=== PATIENT | male | born 1975 | race Two or more races ===

== ENCOUNTER 2019-05-18 15:34 | Inpatient (IN) | payer SELFPAY ==
[~2019-05-18] VITALS: Ht 149.9 cm; Wt 71.4 kg
--- NOTE | 2019-05-18 15:50 | NUR ---
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 alert and oriented x4 breathing even and unlabored with no distress noted. skin intact. waiting to be seen by
[2019-05-18] MEDS ORDERED: ONDANSETRON HCL/PF 4 MG/2 ML VIAL ONE ×2 (15:56→19:47)
[2019-05-18] MEDS ORDERED: LORAZEPAM INJ 2 MG/ML VIAL ONE (15:57)
[2019-05-18] MEDS ORDERED: LORAZEPAM INJ 2 MG/ML VIAL IV ONE (16:00)
[2019-05-18] MEDS ORDERED: ONDANSETRON HCL/PF - ER 4 MG/2 ML VIAL IV ONE ×2 (16:00→20:00)
[2019-05-18 16:38] LABS: CALCIUM, SERUM 9.4 mg/dL (8.5-10.1); CARBON DIOXIDE 21 mmol/L (21-32); CHLORIDE 104 mmol/L (98-107); CREATININE 0.8 mg/dL (0.6-1.3); GLUCOSE 143 mg/dL (74-106); POTASSIUM 3.6 mmol/L (3.5-5.1); SODIUM SERUM 138 mmol/L (136-145); UREA NITROGEN, BLOOD 17 mg/dL (7-18)
[2019-05-18 16:41] LABS: BASOPHILS % (AUTO) 0.1 % (0.0-2.0); EOSINOPHILS % (AUTO) 0.1 % (0.0-6.0); HEMATOCRIT 53 % (39-51); HEMOGLOBIN 18.2 g/dL (13.5-17.5); LYMPHOCYTES # (AUTO) 1.8 /CMM (0.8-4.8); LYMPHOCYTES % (AUTO) 11.3 % (20.0-44.0); MEAN CORPUSCULAR HGB CONC 34 g/dl (31.0-36.0); MEAN CORPUSCULAR VOLUME 87 fL (80-96); MONOCYTES # (AUTO) 1.1 /CMM (0.1-1.30); MONOCYTES % (AUTO) 6.7 % (2.0-12.0); NEUTROPHILS # (AUTO) 13.3 /CMM (1.8-8.9); NEUTROPHILS % (AUTO) 81.8 % (43.0-81.0); PLATELET COUNT (AUTO) 393 /CMM (150-450); RED BLOOD CELL COUNT(AUTO) 6.09 MIL/uL (4.5-6.0); WHITE BLOOD COUNT (AUTO) 16.3 K/uL (4.3-11.0)
[2019-05-18 17:37] LABS: LYMPHOCYTES % (MANUAL) 13 % (16-48); MONOCYTES % (MANUAL) 7 % (0-11.0); NEUTROPHILS % (MANUAL) 80 (42-76)
--- NOTE | 2019-05-18 17:58 | NUR ---
heat treatment technician at bedside
--- NOTE | 2019-05-18 18:40 | NUR ---
URINE SENT TO LAB
[2019-05-18 18:50] LABS: APPEARANCE,URINE Clear (CLEAR); BILIRUBIN,URINE Negative (NEGATIVE); BLOOD, URINE Trace-intact Ery/uL (NEGATIVE); COLOR,URINE Yellow (YELLOW); KETONES,URINE Negative (NEGATIVE); LEUKOCYTE ESTERASE ,URINE Negative (NEGATIVE); NITRITE, URINE Negative (NEGATIVE); PROTEIN,URINE 100 mg/dl (NEGATIVE); UGLUCOSE Negative (NEGATIVE); UROBILINOGEN,URINE 0.2 EU/dL (0.2)
[2019-05-18 18:52] LABS: BACTERIA,URINE Rare /HPF (None Seen); SQUAMOUS EPITHELIAL CELL,UR Few /HPF (None Seen); WBC,URINE NONE SEEN /HPF (0-3)
[2019-05-18] MEDS ORDERED: MORPHINE SULFATE INJ 2 MG/ML DISP.SYRIN ONE (19:47)
--- NOTE | 2019-05-18 19:51 | NUR ---
consent signed for lumbar puncture
[2019-05-18] MEDS ORDERED: MORPHINE SULFATE INJ 2 MG/ML DISP.SYRIN IV ONE (20:00)
[2019-05-18] MEDS ORDERED: AZITHROMYCIN 500 MG in IV D5W 250 ML IV ONE (20:00)
--- NOTE | 2019-05-18 20:26 | NUR ---
CALLED [employer]ail JUNIOR LINUX ADMINISTRATOR WAS PAGED.
--- NOTE | 2019-05-18 20:53 | NUR ---
CALLED HOUSE SUP FOR TELE BED
[2019-05-18] MEDS: CEFTRIAXONE 2 G in IV D5W 100 ML IV SCH ×2 (21:00→21:01)
[2019-05-18] MEDS ORDERED: VANCOMYCIN 1 GM in IV D5W 250 ML IV ONE (21:00)
[2019-05-18] MEDS ORDERED: VANCOMYCIN 1 GM VIAL ONE (21:30)
[2019-05-18 21:47] LABS: CSF GLUCOSE 87 mg/dL (40-70); CSF PROTEIN 38.3 mg/dL (15-45)
--- NOTE | 2019-05-18 22:03 | NUR ---
REPORT TO [place]
--- NOTE | 2019-05-18 22:25 | NUR ---
RECEIVED PATIENT FROM ED VIA GURNEY IN STABLE CONDITION. PATIENT AWAKE, A/O X4, DUTCH SPEAKING AND ABLE TO VERBALIZE NEEDS. NO C/O PAIN, DISCOMFORT, OR NAUSEA. PATIENT WEAK WITH UNSTEADY GAIT, UNABLE TO AMBULATE AT THIS TIME. PERIPHERAL LINE INTACT AND PATENT. PATIENT CONSENTED TO UPPER BODY/EXTREMITY SKIN ASSESSMENT BUT REFUSED TO ALLOW NURSING STAFF FOR REMOVE BILATERAL SOCKS TO ASSESS FEET DESPITE CONTINUED ENCOURAGEMENT. WILL ATTEMPT TO ASSESS FEET LATER IN SHIFT. ENCOURAGED USE OF CALL LIGHT FOR ASSISTANCE AND VERBALIZED GOOD UNDERSTANDING. BED IN LOW LOCK SETTING WITH BED ALARM ON AND FUNCTIONING PROPERLY. ROOM FREE OF CLUTTER AND BELONGINGS KEPT NEAR BEDSIDE. WILL CONTINUE TO MONITOR
[2019-05-18] MEDS ORDERED: Z GUARD REMEDY 2 OZ OINT TP PRN (22:30)
[2019-05-18] MEDS ORDERED: ENOXAPARIN SODIUM 40 MG/0.4 ML DISP.SYRIN SQ SCH (22:30)
[2019-05-18] MEDS ORDERED: ONDANSETRON HCL/PF 4 MG/2 ML VIAL IVP PRN (22:30)
[2019-05-18] MEDS ORDERED: ACETAMINOPHEN 325 MG TABLET PO PRN (22:30)
--- NOTE | 2019-05-18 22:33 | NUR ---
PT TRANSFERED PER [employer]S [employer]
[2019-05-18] MEDS: IV NS 0.9% 1,000 ML IV PRN (23:13)
[2019-05-19] MEDS: MORPHINE SULFATE INJ 2 MG/ML DISP.SYRIN IV PRN ×3 (03:51→19:41)
[2019-05-19 05:03] LABS: BASOPHILS % (AUTO) 0.1 % (0.0-2.0); HEMATOCRIT 51 % (39-51); HEMOGLOBIN 17.6 g/dL (13.5-17.5); LYMPHOCYTES # (AUTO) 0.6 /CMM (0.8-4.8); LYMPHOCYTES % (AUTO) 3.1 % (20.0-44.0); MEAN CORPUSCULAR HGB CONC 34 g/dl (31.0-36.0); MEAN CORPUSCULAR VOLUME 87 fL (80-96); MONOCYTES # (AUTO) 1.5 /CMM (0.1-1.30); MONOCYTES % (AUTO) 7.3 % (2.0-12.0); NEUTROPHILS % (AUTO) 89.5 % (43.0-81.0); PLATELET COUNT (AUTO) 321 /CMM (150-450); RED BLOOD CELL COUNT(AUTO) 5.91 MIL/uL (4.5-6.0); WHITE BLOOD COUNT (AUTO) 20.1 K/uL (4.3-11.0)
[2019-05-19 05:30] LABS: ALBUMIN 3.3 g/dL (3.4-5.0); BILIRUBIN,TOTAL 0.4 mg/dL (0.2-1.0); CALCIUM, SERUM 9.1 mg/dL (8.5-10.1); CREATININE 0.9 mg/dL (0.6-1.3); MAGNESIUM 1.8 mg/dL (1.8-2.4); PHOSPHORUS 3.5 mg/dL (2.5-4.9); POTASSIUM 3.4 mmol/L (3.5-5.1); TOTAL PROTEIN, SERUM 7.2 g/dL (6.4-8.2)
[2019-05-19 05:32] LABS: THYROID STIMULATING HORMONE 0.883 uIU/mL (0.358-3.74)
--- NOTE | 2019-05-19 06:35 | NUR ---
MS RN NOTES PATIENT ASLEEP IN BED WITH NO DISTRESS NOTED. CALL LIGHT WITHIN REACH. ALL DUE MEDS GIVEN ORDERED WITH NO ASE. NO FURTHER C/O PAIN OR DISCOMFORT. PERIPHERAL LINE INTACT AND PATENT. BED IN LOW LOCK SETTING WITH BED ALARM ON AND FUNCTIONING PROPERLY. WILL ENDORSE TO ONCOMING SHIFT.
[2019-05-19 08:25] VITALS: BP 138/96
--- NOTE | 2019-05-19 08:25 | NUR ---
ms rn received on bed, awake,alert,oriented x4,not in any form of distress, respirations even and unlabored,no sob noted, lungs are clear,abdomen soft,positive bowel sounds,denies pain at this time,all needs attended.
--- NOTE | 2019-05-19 08:50 | NUR ---
MS/RN NOTES: DR KAUFFMAN CALLED REGARDING EMERGENT RESULT OF THE CT ANGIO OF THE BRAIN AND CAROTID. PAGED AND CALLED DR. DERICK AREVALO, STILL AWAITING FOR TO CALL BACK. PATIENT IS STABLE AT THIS TIME. NO COMPLAINS OF PAIN OR DISCOMFORT. WILL CONTINUE MONITORING. Addendum: 05/19/19 at 2111 by SADI LOZOYA RN INCORRECT TIME
--- NOTE | 2019-05-19 09:00 | NUR ---
ms zambrano breakfast served,due meds given,tolerated well.
[2019-05-19] MEDS ORDERED: POTASSIUM CHLORIDE 20 MEQ TAB.PRT.SR PO SCH (11:00)
[2019-05-19] MEDS ORDERED: ASPIRIN 325 MG TABLET PO ONE ×2 (13:30→16:00)
[2019-05-19 16:06] VITALS: BP 119/51
[2019-05-19] MEDS ORDERED: IOHEXOL-350 100 ML VIAL IV ONE (18:37)
[2019-05-19] MEDS ORDERED: IV NS 0.9% 250 ML IV ONE (18:44)
--- NOTE | 2019-05-19 19:20 | NUR ---
MS/RN OPENING NOTES: RECEIVED PT. IN BED AWAKE AND ALERT X4. SAO TOMEAN SPEAKING ONLY. FAMILY MEMBERS PRESENT AT BED SIDE. ON BED REST. ON ROOM AIR, SATURATING WELL. NO SOB NOTED. NO S/S OF DISTRESS. IV SITE ON THE LEFT AC #20G PRESENT, INTACT AND PATENT. SAFETY MEASURES ARE IN PLACE. BED IS IN LOW, LOCKED POSITION, SR UP X2. WILL CONTINUE MONITORING PT. ACCORDINGLY.
--- NOTE | 2019-05-19 19:50 | NUR ---
MS/RN NOTES: CALLED PHARMACY REGARDING ROCEPHIN 2G THAT IS SUPPOSEDLY GIVEN EVERY 24HOURS. SPOKE TO MODESTA TO CONFIRM THAT ITS OKAY TO BE GIVEN AND TO NOT SCAN BECAUSE ER NURSE MISTAKENLY SCANNED TWICE YESTERDAY.
[2019-05-19 20:00] VITALS: BP 129/94
--- NOTE | 2019-05-19 20:40 | NUR ---
MS/RN NOTES: PATIENT CAME BACK FROM CT ANGIO OF THE BRAIN AND ARTERY. PATIENT IN STABLE CONDITION. REMAINS A/OX4, RESPONSIVE.
--- NOTE | 2019-05-19 20:50 | NUR ---
MS/RN NOTES: DR KAUFFMAN CALLED REGARDING EMERGENT RESULT OF THE CT ANGIO OF THE BRAIN AND CAROTID. PAGED AND CALLED DR. DERICK AREVALO, STILL AWAITING FOR TO CALL BACK. PATIENT IS STABLE AT THIS TIME. NO COMPLAINS OF PAIN OR DISCOMFORT. WILL CONTINUE MONITORING.
--- NOTE | 2019-05-19 21:31 | NUR ---
MS/RN NOTES: CALLED DR. SEPULVEDA AGAIN. STILL NO RESPONSE. PATIENT IS STABLE AT THIS TIME. RESPONSIVE AND ABLE TO FOLLOW COMMANDS.
--- NOTE | 2019-05-19 21:50 | NUR ---
MS/RN NOTES: DR SEPULVEDA CALLED AND MADE AWARE OF PATIENT CONDITION AND CURRENT SITUATION. STATED HE WILL VIEW PATIENT'S CHARTS FIRST AND WILL NOTIFY ME FOR FURTHER INFO. WILL CONITNUE MONITORING PATIENT.
--- NOTE | 2019-05-19 23:30 | NUR ---
MS/RN NOTES: CALLED DR. CASPER, WENT TO [employer]. LEFT MESSAGE REGARDING PT'S. CONDITION. WILL CONTINUE TO MONITOR.
[2019-05-20] VITALS (25 sets, daily range): BP systolic 107–148; BP diastolic 62–100
--- NOTE | 2019-05-20 01:30 | NUR ---
MS/RN NOTES: CALLED DR. SEPULVEDA REGARDING F/U FOR PATIENT'S CONDITION. PER MD, "CONTINUE MONITORING FOR NOW, I INFORMED THE NEURO DR WELL, LET'S WAIT FOR MORNING". WILL CONTINUE TO MONITOR.
--- NOTE | 2019-05-20 01:32 | NUR ---
MS/RN NOTES: NO NEW ORDERS FOR NOW. MD AWARE. WILL CONITNUE MONITORING PT AND DO NUERO CHECKS.
[2019-05-20] MEDS: IV NS 0.9% 1,000 ML IV PRN ×2 (01:34→14:11)
[2019-05-20] MEDS: MORPHINE SULFATE INJ 2 MG/ML DISP.SYRIN IV PRN ×3 (01:54→16:09)
--- NOTE | 2019-05-20 01:57 | NUR ---
MS/RN NOTES: PATIENT COMPLAINED OF PAIN LEVEL OF 10 ON THE NECK. QUALITY IS THROBBING AND ACHING. VITAL SIGNS WNL. BP: 11/70. HR: 82. O2 SAT :94% PATIENT IS A/OX4 AT THIS TIME. IN STABLE CONDITION. ADMINISTERED 4MGG OF MORPHINE IV. WILL REASSESS AND CONTINUE MONITORING ACCORDINGLY.
--- NOTE | 2019-05-20 02:57 | NUR ---
MS/RN NOTES: PATIENT STABLE. PAIN LEVEL IMPROVED AND NOW MORE TOLERABLE. NEURO CHECK ASSESSMENT DONE. PT. ABLE TO FOLLOW COMMANDS AND REMAINS A/OX4. WILL CONTINUE MONITORING PT. ACCORDINGLY.
--- NOTE | 2019-05-20 04:00 | NUR ---
MS/RN NOTES: PATIENT STABLE. NEURO CHECK ASSESSMENT DONE. PT. ABLE TO FOLLOW COMMANDS AND REMAINS A/OX4. WILL CONTINUE MONITORING PT. ACCORDINGLY.
--- NOTE | 2019-05-20 05:00 | NUR ---
MS/RN NOTES: PATIENT IS STABLE. NO COMPLAINS OF PAIN AT THIS TIME. NEURO CHECK ASSESSMENT DONE. PT. ABLE TO FOLLOW COMMANDS AND REMAINS A/OX4. WILL CONTINUE MONITORING PT. ACCORDINGLY.
--- NOTE | 2019-05-20 06:38 | NUR ---
MS/RN CLOSING NOTES: PATIENT IS IN A STABLE CONDITION. SLEEPING IN BED COMFORTABLY. EASILY AROUSED WITH VERBAL STIMULI. REMAINS A/OX4. ICELANDIC SPEAKING, VERBALLY RESPONSIVE AND ABLE TO MAKE NEEDS KNOWN. ONROOM AIR. NO SOB NOTED, NO S/S OF ACUTE DISTRESS. NO COMPLAINS OF PAIN AT THIS TIME. ALL DUE MEDS GIVEN ORDERED. ALL NEEDS ATTENDED AND MET. IV ACCESS ON THE LEFT AC #20G INTACT AND PATENT WITH NS RUNNING AT 75MLS/HR. MD AWARE OF PT'S CONDITION AND PT'S CT ANGIO OF THE BRAIN AND ARTERY FINDINGS. STILL NO ORDERS. FREQUENT NEURO CHECK DONE Q1HOUR. PATIENT ABLE TO FOLLOW COMMANDS. SAFETY MEASURES KEPT IN PLACE. BED IN LOW, LOCKED POSITION WITH SR UP X2. KEPT PT CLEAN AND DRY AT ALL TIMES. KEPT PT WARM AND COMFORTABLE THROUGHOUT THE SHIFT. WILL ENDORSE TO DAY SHIFT NURSE FOR [place].
[2019-05-20 08:08] LABS: BASOPHILS % (AUTO) 0.1 % (0.0-2.0); EOSINOPHILS % (AUTO) 0.1 % (0.0-6.0); HEMATOCRIT 49 % (39-51); HEMOGLOBIN 16.4 g/dL (13.5-17.5); LYMPHOCYTES # (AUTO) 0.9 /CMM (0.8-4.8); LYMPHOCYTES % (AUTO) 5.7 % (20.0-44.0); MEAN CORPUSCULAR HGB CONC 34 g/dl (31.0-36.0); MEAN CORPUSCULAR VOLUME 87 fL (80-96); MONOCYTES # (AUTO) 1.3 /CMM (0.1-1.30); MONOCYTES % (AUTO) 8.5 % (2.0-12.0); NEUTROPHILS % (AUTO) 85.6 % (43.0-81.0); PLATELET COUNT (AUTO) 265 /CMM (150-450); WHITE BLOOD COUNT (AUTO) 15.2 K/uL (4.3-11.0)
--- NOTE | 2019-05-20 08:16 | NUR ---
MS/RN OPENING NOTE Patient received resting in bed, A/O x4, showing no signs of respiratory distress, saturating 95% on RA. Patient is complaining of pain in the back of the neck. Dr. Almonte is at the bedside and assessed the patient. Patient has slight left sided weakness on the left side of his face, left hand weakness when squeezing left hand, and wide stance when ambulating. Dr. Almonte ordered STAT MRI of the brain, head and neck without contrast, MRI consent is signed and placed in chart. And Neuro checks q 2 hours. MD also ordered aspirin and lovenox scheduled for [address] Almonte, patient doesn't need to be on isolation precautions since meningitis has been ruled out. IV line is clean and intact s/l. Bed is in lowest position, side rails x3 in upright position, call light is within reach and patient is aware of hoe to call for assistance when needed. Will continue with plan of care.
[2019-05-20 08:26] LABS: ALANINE AMINOTRANSFERASE 70 U/L (12-78); ALBUMIN 2.8 g/dL (3.4-5.0); ALKALINE PHOSPHATASE 72 U/L (46-116); ASPARTATE AMINOTRANSFERASE 43 U/L (15-37); BILIRUBIN,TOTAL 0.6 mg/dL (0.2-1.0); CALCIUM, SERUM 8.8 mg/dL (8.5-10.1); CARBON DIOXIDE 28 mmol/L (21-32); CHLORIDE 101 mmol/L (98-107); CREATININE 0.9 mg/dL (0.6-1.3); GLUCOSE 113 mg/dL (74-106); PHOSPHORUS 3.9 mg/dL (2.5-4.9); POTASSIUM 3.9 mmol/L (3.5-5.1); SODIUM SERUM 137 mmol/L (136-145); TOTAL PROTEIN, SERUM 6.8 g/dL (6.4-8.2); UREA NITROGEN, BLOOD 16 mg/dL (7-18)
[2019-05-20] MEDS ORDERED: ASPIRIN 81 MG TAB.CHEW PO SCH (09:00)
[2019-05-20] MEDS: ASPIRIN EC 325 MG TABLET.DR PO SCH ×2 (09:00→10:29)
[2019-05-20] MEDS: ENOXAPARIN SODIUM 40 MG/0.4 ML DISP.SYRIN SQ SCH ×2 (09:00→10:28)
--- NOTE | 2019-05-20 09:15 | NUR ---
MS/RN MRI Patient has gone down to MRI
[2019-05-20] MEDS: FAMOTIDINE/PF INJ 20 MG/2 ML VIAL IV SCH ×2 (10:29→10:30)
--- NOTE | 2019-05-20 10:30 | NUR ---
MS/RN NOTE Patient is back from MRI, patient still presents with left side facial weakness only. So changes in LOC, or BUE and BLE strength. Will continue to monitor.
--- NOTE | 2019-05-20 10:35 | NUR ---
MS/RN NOTE Spoke with MD Lalo Leblanc, he is aware of patient's CTA results and patient's left sided facial weakness. Per MD, he is waiting for MRI results and to notify him when the results are ready.
--- NOTE | 2019-05-20 10:40 | NUR ---
MS/RN note Spoke with radiology if the MRI results can be interpreted JENNIFER, theygave me phone number for [employer] which is the company that interprets the MRI results. Called [facility], and asked them to interpret MRI results stat per MD.
--- NOTE | 2019-05-20 10:57 | NUR ---
held lovenox and aspirin per MD Lalo Leblanc
--- NOTE | 2019-05-20 11:00 | NUR ---
MS/RN NOTE MD notified of MRI brain w/o contrast results.
--- NOTE | 2019-05-20 11:41 | NUR ---
Social service consult requested by Dr. Barker for stroke protocol. Per chart review and MD notes, pt is a 43-year-old gentleman who presented to the emergency department via ambulance for acute onset of a headache that was moderate to severe in nature described as severe constant and throbbing radiating down to his neck with tingling sensation to his face and bilateral hands. POLITICAL GEOGRAPHER met with pt and his family and friends bedside. Pt is Luxembourger Speaking. HOWARD Garber assisted in translation. POLITICAL GEOGRAPHER introduced self and explained her role. Pt. is alert and oriented x 4. Pt. resides alone in a one story house. Pt.is unemployed at this time. Pt. reports to be independent with his ADLS prior to hospitalization. Pt's main complaint is being in pain and not having much of an appetite. Pt.denies any suicidal and homicidal ideations and visual/auditory hallucinations at this time. Pt reports to have good family support. Pt's brother Ab is bedside. Pt provided active listening and supportive counseling. POLITICAL GEOGRAPHER completed PHQ-9 assessment. No other social service needs are requested at this time. POLITICAL GEOGRAPHER is available, if needed.
--- NOTE | 2019-05-20 12:45 | NUR ---
MS/RN transferred to ICU Per MD, patient is to be transferred to ICU. Transferred patient with Steffen RN and gave bedside report to Felicity LANDRY in the ICU. Tele monitor Sinus Tachycardia. Vital signs 130/91, HR 94, RR 20, o2 94% RA, T 98.1. Family is in ICU waiting room.
--- NOTE | 2019-05-20 12:50 | NUR ---
ICU ADMITTING NOTES Pt transferred to ICU for close monitoring neuro root. Pt transferred via bed accompanied by 3W RN. Pt is A/O x 3, c/o severe pain on occipital area, R side, throbbing, 10/10 - was given Morphine IVP prior to transfer. Pt noted L facial drooping, denies & no weakness noted on all extremities, able to follow commands. No SOB while on R/A. ST/SR on telemonitor. IV line access on L AC G20 SL, flushing well w/ no s/sx of infection/infiltration noted. Skin is intact - abdominal hernia noted. Continent w/ both bowel & bladder, utilizes the urinal. Safety precaution in place w/ bed in lowest & locked pos. Call light placed w/in reach. Will cont to monitor & attend pt needs. Per Lalo ALANIZ, CHUCK Lovenox & start pt on ASA 325mg PO daily - give one dose today. 1841 No neurological deterioration noted w/in shift. Pt still c/o headache, same area. Will endorse to PM RN for [place].
[2019-05-20] MEDS ORDERED: ASPIRIN EC 325 MG TABLET.DR PO ONE (19:00)
[2019-05-20] MEDS ORDERED: KETOROLAC TROMETHAMINE INJ 30 MG/ML VIAL IV STA (19:11)
[2019-05-20] MEDS ORDERED: CEFTRIAXONE 2 G in IV D5W 100 ML IV SCH (21:00)
[2019-05-21] VITALS (16 sets, daily range): BP systolic 107–141; BP diastolic 67–95
[2019-05-21] MEDS: IV NS 0.9% 1,000 ML IV PRN ×2 (01:00→18:21)
[2019-05-21] MEDS: MORPHINE SULFATE INJ 2 MG/ML DISP.SYRIN IV PRN ×5 (02:11→20:43)
[2019-05-21 04:44] LABS: BASOPHILS % (AUTO) 0.1 % (0.0-2.0); EOSINOPHILS % (AUTO) 0.5 % (0.0-6.0); HEMATOCRIT 46 % (39-51); HEMOGLOBIN 15.5 g/dL (13.5-17.5); LYMPHOCYTES # (AUTO) 1.1 /CMM (0.8-4.8); LYMPHOCYTES % (AUTO) 8.9 % (20.0-44.0); MEAN CORPUSCULAR HGB CONC 34 g/dl (31.0-36.0); MEAN CORPUSCULAR VOLUME 88 fL (80-96); MONOCYTES # (AUTO) 0.9 /CMM (0.1-1.30); MONOCYTES % (AUTO) 7.9 % (2.0-12.0); NEUTROPHILS % (AUTO) 82.6 % (43.0-81.0); PLATELET COUNT (AUTO) 244 /CMM (150-450); RED BLOOD CELL COUNT(AUTO) 5.21 MIL/uL (4.5-6.0); WHITE BLOOD COUNT (AUTO) 12.1 K/uL (4.3-11.0)
[2019-05-21 04:56] LABS: CALCIUM, SERUM 8.6 mg/dL (8.5-10.1); CREATININE 0.8 mg/dL (0.6-1.3); POTASSIUM 4.1 mmol/L (3.5-5.1)
--- NOTE | 2019-05-21 07:12 | NUR ---
CORRECTIONS SERGEANT INITIAL NOTES Rec'd pt on bed, A/O x 3, not in any distress, c/o pain on occipital area 01/29. On R/A, denies SOB. SR/SB on telemonitor. NS x 75 cc/hr running at L AC G20. Safety precaution in place w/ bed in lowest & locked pos. Call light placed w/in reach. Will cont to monitor & attend pt needs.
--- NOTE | 2019-05-21 07:27 | NUR ---
PATIENT REMAINS IN NO ACUTE DISTRESS IN BED. ALL NEEDS MET, ALL ORDERS CARRIED OUT. PATIENT IS ON Q1H NEURO CHECK WITH NO CHANGES FROM BEGINNING OF SHIFT. PATIENT HAS NO DEFICITS NOTED EXCEPT SLIGHT WEAKNESS ON RIGHT SIDE OF CHEEK. ENDORSED CARE TO AM RN FOR CONTINUITY OF CARE.
[2019-05-21] MEDS: FAMOTIDINE/PF INJ 20 MG/2 ML VIAL IV SCH ×2 (08:35→20:42)
[2019-05-21] MEDS: ASPIRIN EC 325 MG TABLET.DR PO SCH (08:35)
--- NOTE | 2019-05-21 11:00 | NUR ---
ICU TRANSFER NOTES Pt transferred to MS 111/2 as ordered via bed. Pt remains A/O x 3, not in any distress. SR on telemonitor. RFA G20 kept patent & intact w/ no s/sx of infection/infiltration noted w/ NS x 75 cc/hr infusing well. Pt able to walk w/ physical therapist this AM using walker. Skin remains intact. All belongings w/ pt, per pt nothing is missing. No concern/issues identified during transfer. Report given to aPtito LANDRY for [place].
--- NOTE | 2019-05-21 20:50 | NUR ---
MINOO/RN PATIENT C/O NECK PAIN, MEDICATED WITH MORPHINE 4 MG ORDERED. PATIENT IS AWAKE, ALERT, ORIENTED, NO DISTRESS NOTED, CALL LIGHT IN REACH. FALL PRECAUTIONS. WILL MONITOR.
[2019-05-22] VITALS: BP 141/95
[2019-05-22 00:18] VITALS: BP 158/78
--- NOTE | 2019-05-22 00:26 | NUR ---
MINOO/RN PLS. DISREGARD VITAL SIGNS DOCUMENTATION AT 0018, THOSE ARE VITAL SIGNS OF OTHER PATIENT.
--- NOTE | 2019-05-22 02:17 | NUR ---
MINOO/RN PATIENT IS SLEEPING AT THIS TIME, APPEAR COMFORTABLE, NO SIGNS OF DISTRESS NOTED, CALL LIGHT IN REACH, WILL CONTINUE TO MONITOR.
--- NOTE | 2019-05-22 03:15 | NUR ---
MINOO/RN C/O HEAD ACHE, TYLENOL 650 MG PO WAS GIVEN ORDERED. WILL CONTINUE TO MONITOR.
[2019-05-22 04:36] VITALS: BP 132/86
--- NOTE | 2019-05-22 06:04 | NUR ---
MINOO/RN PATIENT IS STILL SLEEPING AT THIS TIME, APPEAR COMFORTABLE, NO SIGNS OF DISTRESS NOTED, ALL NEEDS ATTENDED AT THIS TIME, CALL LIGHT IN REACH. WILL CONTINUE TO MONITOR.
--- NOTE | 2019-05-22 07:10 | NUR ---
MS RN NOTES PATIENT A/OX4 AZERI SPEAKER. NO SOB OR DISCOMFORT NOTED AT THIS TIME. RIGHT FOREARM NS RUNNING AT 75 ML /HR. CALL LIGHT WITHIN REACH BED AT THE LOWEST POSITION LOCKED.
[2019-05-22 08:00] VITALS: BP 132/87
[2019-05-22] MEDS: CYANOCOBALAMIN 500 MCG TABLET PO SCH (08:18)
[2019-05-22] MEDS: FERROUS SULFATE (325 MG) 325 MG/TAB TABLET PO SCH ×2 (08:18→18:11)
[2019-05-22] MEDS: ASPIRIN EC 325 MG TABLET.DR PO SCH (08:18)
[2019-05-22] MEDS: FAMOTIDINE/PF INJ 20 MG/2 ML VIAL IV SCH ×2 (08:19→20:31)
[2019-05-22] MEDS: MORPHINE SULFATE INJ 2 MG/ML DISP.SYRIN IV PRN ×3 (08:19→20:33)
[2019-05-22] MEDS: IV NS 0.9% 1,000 ML IV PRN ×2 (08:30→23:33)
[2019-05-22 13:13] LABS: *ANTITHROMBIN III AG 113 % (72-124); *DILUTE PROTHROMBIN TIME (dPT) 45.7 sec (0.0-55.0); *THROMBIN TIME 14.5 sec (0.0-23.0); *dPT CONFIRM RATIO 1.13 Ratio (0.00-1.40); *dRVVT 55.8 sec (0.0-47.0); PROTEIN C ACTIVITY 161 % (73-180)
--- NOTE | 2019-05-22 14:37 | NUR ---
MS RN NOTES CONTACTED DR ZAVALETA REGARDING PATIENT`S HEADACHE AND CONSTIPATION. ORDER RECEIVED: NORCO 10/325 Q4HR PRN, MIRALAX 17 G PO DAILY PRN, TELEPHONE ORDER READ BACK.
[2019-05-22] MEDS ORDERED: POLYETHYLENE GLYCOL 3350 17 GM POWD.PACK PO PRN (15:00)
[2019-05-22] MEDS: HYDROCODONE/APAP 10/325MG 1 EA TABLET PO PRN (15:46)
[2019-05-22 16:00] VITALS: BP 132/85
--- NOTE | 2019-05-22 19:20 | NUR ---
MS RN NOTES PATIENT IN BED A/OX 4 , COMPLAINING OF HEADACHE 12/30. PAIN MANAGEMENT DONE, ENDORSED TO SENIOR BUSINESS PROCESS ANALYST NURSE TO CONTINUE PAIN MANAGEMENT. PATIENT DID NOT HAVE BOWEL MOVEMENT , OBTAINED MEDICATION ORDER BUT PATIENT REFUSED THE MED. CALL LIGHT WITHIN REACH, BED AT THE LOWEST POSITION LOCKED,, ENDORSED TO SENIOR BUSINESS PROCESS ANALYST NURSE FOR [place].
[2019-05-22 19:57] VITALS: BP 132/85
[2019-05-23] MEDS: MORPHINE SULFATE INJ 2 MG/ML DISP.SYRIN IV PRN (00:48)
[2019-05-23 00:53] VITALS: BP 124/76
[2019-05-23 01:12] LABS: *CARD ANTI-CARDIOLIPIN AB IgA <9 APL U/mL (0-11); *CARD ANTI-CARDIOLIPIN AB IgG <9 GPL U/mL (0-14); *CARD ANTI-CARDIOLIPIN AB IgM <9 MPL U/mL (0-12)
[2019-05-23] MEDS: HYDROCODONE/APAP 10/325MG 1 EA TABLET PO PRN (04:02)
[2019-05-23 05:30] VITALS: BP_SYST 138; BP_SYST 155; BP_DIAS 78; BP_DIAS 95
--- NOTE | 2019-05-23 07:16 | NUR ---
MS RN OPENING NOTE RECEIVED PATIENT IN BED SLEEPING COMFORTABLY. PATIENT IN NO ACUTE DISTRESS. NO SOB NOTED. PATIENT BREATHING IS EVEN AND UNLABORED. IV PATENT AND INTACT. SAFETY PRECAUTIONS IN PLACE. PATIENT BED IS LOCKED AND IN LOWEST POSITION. CALL LIGHT WITHIN REACH. WILL CONTINUE TO MONITOR.
[2019-05-23 08:00] VITALS: BP 145/97
[2019-05-23] MEDS: FERROUS SULFATE (325 MG) 325 MG/TAB TABLET PO SCH (08:39)
[2019-05-23] MEDS: FAMOTIDINE/PF INJ 20 MG/2 ML VIAL IV SCH (08:39)
[2019-05-23] MEDS: ASPIRIN EC 325 MG TABLET.DR PO SCH (08:39)
[2019-05-23] MEDS: CYANOCOBALAMIN 500 MCG TABLET PO SCH (08:39)
--- NOTE | 2019-05-23 10:56 | NUR ---
Visited pt today. Pt confirmed height 4'11" (59 inches) and denies recent weight changes. Pt states appetite is so so. Per nursing, 0-100% po intake but appears improving. Noted LDL 217H. Provided diet education to pt with handouts. Pt verbalized understanding. Noted MD order to discharge pt today.
--- NOTE | 2019-05-23 11:34 | NUR ---
MS RN NOTE PATIENT REFUSED SKIN ASSESSMENT AND PICTURES. PATIENT STATES " I DONT FEEL COMFORTABLE, YOU GUYS HAVE A PICTURE ALREADY. I REFUSE." EDUCATED RISKS VS BENEFITS. PATIENT CONTINUED TO REFUSE.
[2019-05-23] MEDS ORDERED: ATOR80TA PO (12:33)
[2019-05-23] MEDS ORDERED: FERR325T28 PO (12:33)
[2019-05-23] MEDS ORDERED: ASPI-869 PO (12:33)
[2019-05-23] MEDS ORDERED: IBUP-1953 PO (12:33)
--- NOTE | 2019-05-23 13:45 | NUR ---
MS HUMAN RESOURCE INTERNSHIP NOTE PATIENT MEDICALLY CLEARED FOR DISCHARGE. PATIENT IN NO ACUTE DISTRESS. NO SOB NOTED. PATIENT BREATHING IS EVEN AND UNLABORED. PATIENT VITAL SIGNS WNL. PATIENT REFUSED SKIN ASSESSMENT. EDUCATED RISKS VS BENEFITS. PATIENT CONTINUED TO REFUSE. PATIENT PROVIDED DC INSTRUCTIONS WITH RESEARCH AND EVALUATION ANALYST PRESENT. PATIENT VERBALIZED UNDERSTANDING. PATIENT IV REMOVED. ID BAND REMOVED. PATIENT KEPT CLEAN, DRY AND COMFORTABLE THROUGHOUT SHIFT. PATIENT NEEDS AND CONCERNS ADDRESSED. PATIENT AMBULATORY WITH STEADY GAIT, LEAVING WITH FAMILY TO CAR BACK HOME. AWARE OF DISCHARGE. Addendum: 05/23/19 at 1350 by ROBINSON APONTE RN MS HUMAN RESOURCE INTERNSHIP NOTE PATIENT MEDICALLY CLEARED FOR DISCHARGE. PATIENT IN NO ACUTE DISTRESS. NO SOB NOTED. PATIENT BREATHING IS EVEN AND UNLABORED. PATIENT VITAL SIGNS WNL. PATIENT REFUSED SKIN ASSESSMENT. EDUCATED RISKS VS BENEFITS. PATIENT CONTINUED TO REFUSE. PATIENT PROVIDED DC INSTRUCTIONS WITH RESEARCH AND EVALUATION ANALYST PRESENT. PATIENT VERBALIZED UNDERSTANDING. PATIENT IV REMOVED. ID BAND REMOVED. PATIENT KEPT CLEAN, DRY AND COMFORTABLE THROUGHOUT SHIFT. PATIENT NEEDS AND CONCERNS ADDRESSED. PATIENT SIGNED BELONGINGS LIST AND HAS BELONGINGS WITH HIM. PATIENT AMBULATORY WITH STEADY GAIT, LEAVING WITH FAMILY TO CAR BACK HOME. AWARE OF DISCHARGE.
== END 2019-05-23 14:26 | disposition home or self-care (01) | DRG 64 ==
LOC: ER 15:48 → TELE 21:12 → MED 05-19 16:31 → ICU 05-20 12:09 → MEDSG1 05-21 11:04
PROVIDERS: ADMIT Nurse Practitioner Acute Care; ATTEND Internal Medicine
DX: I63.9 Cerebral infarction, unspecified (principal); I21.A1 Myocardial infarction type 2; J98.11 Atelectasis; D68.59 Other primary thrombophilia; R51 Headache; E86.0 Dehydration; R29.701 NIHSS score 1; R40.2363 Coma scale, best motor response, obeys commands, at hospital admission; R40.2143 Coma scale, eyes open, spontaneous, at hospital admission; R40.2253 Coma scale, best verbal response, oriented, at hospital admission; E87.6 Hypokalemia; I48.91 Unspecified atrial fibrillation; D75.1 Secondary polycythemia; E61.1 Iron deficiency; G93.89 Other specified disorders of brain; E78.5 Hyperlipidemia, unspecified; I65.03 Occlusion and stenosis of bilateral vertebral arteries; D72.829 Elevated white blood cell count, unspecified
CPT/HCPCS: 36415; 70450-TC; 70496-TC; 70498-TC; 70544-TC; 70547-TC; 70551-TC; 71045-TC; 80048-TC; 80053-TC; 80061-TC; 80305; 81000-TC; 81240; 81241; 82728-TC; 83090; 83540-TC; 83735-TC; 84100-TC; 84443-TC; 84484-TC; 85025-TC; 85300; 85301; 85303; 85613; 85670; 85705; 85732; 86147; 86803; 87040-TC; 87070-TC; 87081-TC; 87806; 89051-TC; 92611-TC; 93307-TC; 97116-TC; 97530-TC; G0378; J0456; J0696; J1650; J1885; J2060; J2270; J2405; J3370; J3490; J7030; J7050; J7060; Q9967